=== PATIENT | female | born 1945 | race Caucasian/White ===

== ENCOUNTER 2017-07-31 10:59 | Emergency (ER) | payer OTHER ==
[2017-07-31 11:07] VITALS: RESP 18; TEMP 97.9
--- NOTE | 2017-07-31 11:15 | EDPHY ---
H & P Stated Complaint: L ear stopped up after swimming with earplugs Time Seen by Provider: 07/31/17 11:15 - Personal History Current Tetanus Diphtheria and Acellular Pertussis (TDAP): No - Medical/Surgical History Other PMH: healthy - Social History Smoking Status: Former smoker Constitutional: Initial Vital Signs Temperature (C) 36.6 C 07/31/17 11:00 Heart Rate 78 07/31/17 11:00 Respiratory Rate 18 07/31/17 11:00 Blood Pressure 163/82 H 07/31/17 11:00 O2 Sat (%) 96 07/31/17 11:00 O2 Delivery Mode Room Air Allergies/Adverse Reactions: No Known Allergies Allergy (Unverified 07/31/17 11:07) Home Medications: Medication Instructions Recorded NK [No Known Home Meds] 07/31/17 Medical Decision Making ED Course/Re-evaluation: CHIEF COMPLAINT: Can't hear out of left ear and right ear somewhat decreased HISTORY OF PRESENT ILLNESS: 71-year-old female who claims she is quite healthy. She has been swimming quite a bit and using ear plugs. She feels like she might have put something into her year because she can here at all of the left ear and her hearing on the right is decreased. She denies any fevers chills. She denies any ear pain. She denies any jaw pain. She denies any TMJ pain. She has had cerumen impaction in the past and feels the same to her. REVIEW OF SYSTEMS: A 10 point review of systems was performed and is negative with the exception of the elements mentioned in the history of present illness. PHYSICAL EXAM: HR, BP, O2 Sat, RR. Temp noted General Appearance: Alert, well hydrated, appropriate, and non-toxic appearing. Head: Atraumatic without scalp tenderness or obvious injury Eyes: Pupils equal, round, reactive to light and accommodation, EOMI, no trauma , no injection. Ears: Impacted cerumen bilaterally. After irrigation: Clear bilaterally, no perforation, normal landmarks Nose: Atraumatic, no rhinorrhea, clear. Throat: There is no erythema or exudates, no lesions, normal tonsils, mucus membranes moist. Neck: Supple, 2+ carotid upstroke, nontender, no lymphadenopathy. Respiratory: No retractions, no distress, no wheezes, and no accessory muscle use. Lungs are clear to auscultation bilaterally. Cardiovascular: Regular rate and rhythm, no murmurs, rubs, or gallops. Bilateral carotid, radial, dorsalis pedis, and posterior tibial pulses intact. Good capillary refill all extremities. Gastrointestinal: Abdomen is soft, nontender, non-distended, no masses, no rebound, no guarding, no peritoneal signs. Musculoskeletal: Normal active ROM of all extremities, atraumatic. Neurological: Alert, appropriate, and interactive. The patient has normal DTRs and non-focal cranial nerves, motor, sensory, and cerebellar exam. Skin: No rashes, good turgor, no nodules on palpation. Past medical history: Prior cerumen impactions Past surgical history: None Family history: Noncontributory Social history: , does not abuse tobacco drugs or alcohol DIFFERENTIAL DIAGNOSIS: Hearing loss includes but is not limited to: Cerumen impaction, tympanic membrane disruption, ossicle disruption, otitis externa, swimmer's ear MEDICAL DECISION MAKING: This patient has no evidence of infection but has bilateral cerumen impaction. We have irrigated both ears. The tympanic membranes look normal after irrigation. She will use some Cerumenex to help decrease her cerumen buildup. Patient can't hear very well now. Departure - Departure Disposition: Home, Routine, Self-Care Clinical Impression: Cerumen impaction Qualifiers: Laterality: bilateral Qualified Code(s): H61.23 - Impacted cerumen, bilateral Condition: Good Instructions: Cerumen Impaction (ED) Additional Instructions: By Cerumenex [id number] Referrals: NONE *PRIMARY CARE P,. [Primary Care Provider] - As per Instructions
[2017-07-31 11:51] VITALS: BP 169/83; PULSE 75; O2SAT 95
== END 2017-07-31 11:46 | disposition home or self-care (01) ==
PROC: 3E1B78Z Irrigation of Ear using Irrigating Substance, Via Natural or Artificial Opening (ICD-10-PCS; principal; 2017-07-31)
DX: H61.23 Impacted cerumen, bilateral (principal); Z87.891 Personal history of nicotine dependence

== ENCOUNTER 2017-09-02 11:54 | Emergency (ER) | payer OTHER ==
[2017-09-02 12:19] VITALS: TEMP 98.4
--- NOTE | 2017-09-02 13:40 | EDPHY ---
H & P Stated Complaint: Flu like sx, body aches Time Seen by Provider: 09/02/17 13:39 HPI/ROS: CHIEF COMPLAINT: Flu-like symptoms HISTORY OF PRESENT ILLNESS: The patient presents to the ED with influenza like symptoms for the past 2 days. She reports myalgias, low-grade fever a mild dry nonproductive cough and low-grade nausea. She has had no vomiting or diarrhea. The patient does significant headache, neck pain, numbness or weakness. The patient denies dysuria. The patient did not receive a flu shot this year. She denies any significant past medical history. She takes no regular medications. REVIEW OF SYSTEMS: A comprehensive 10 point review of systems is otherwise negative aside from elements mentioned in the history of present illness. Source: Patient - Personal History Current Tetanus/Diphtheria Vaccine: No Current Tetanus Diphtheria and Acellular Pertussis (TDAP): No - Medical/Surgical History Hx Asthma: No Hx Chronic Respiratory Disease: No Hx Diabetes: No Hx Cardiac Disease: No Hx Renal Disease: No Hx Cirrhosis: No Hx Alcoholism: No Hx HIV/AIDS: No Hx Splenectomy or Spleen Trauma: No Other PMH: healthy - Social History Smoking Status: Former smoker - Physical Exam Exam: General Appearance: Alert, no distress Eyes: Pupils equal and round no pallor or injection ENT, Mouth: Mucous membranes moist Respiratory: There are no retractions, lungs are clear to auscultation Cardiovascular: Regular rate and rhythm Gastrointestinal: Abdomen is soft and nontender, no masses, bowel sounds normal Neurological: A&O, normal motor function, normal sensory exam, normal cranial nerves Skin: Warm and dry, no rashes Musculoskeletal: Neck is supple nontender Extremities: symmetrical, full range of motion Constitutional: Initial Vital Signs Temperature (C) 36.9 C 09/02/17 12:17 Heart Rate 68 09/02/17 12:17 Respiratory Rate 18 09/02/17 12:17 Blood Pressure 142/83 H 09/02/17 12:17 O2 Sat (%) 94 09/02/17 12:17 O2 Delivery Mode Room Air Allergies/Adverse Reactions: Penicillins Allergy (Verified 09/02/17 12:19) Home Medications: Medication Instructions Recorded Oseltamivir Phosphate [Tamiflu] 75 mg PO BID #10 cap 09/02/17 Medical Decision Making ED Course/Re-evaluation: The patient presents to the ED with a influenza like illness. She is within 48 hr of the onset of symptoms. She is well-appearing otherwise without clinical evidence of meningitis or pneumonia. The patient will be treated empirically with Tamiflu. She is advised to return to the ED for any progressive symptoms including headache, neck pain, numbness, weakness, pain or other concerns. Departure - Departure Disposition: Home, Routine, Self-Care Clinical Impression: Influenza Condition: Good Instructions: Influenza (ED) Additional Instructions: 1. Please take Tamiflu as directed for influenza. 2. Take Ibuprofen or Motrin 600 mg by mouth three times a day. 3. Return to the ED for increasing symptoms of chest pain, difficulty breathing , vomiting or other concerns.
[2017-09-02 14:02] VITALS: BP 142/89; PULSE 76; RESP 16; O2SAT 93
== END 2017-09-02 14:00 | disposition home or self-care (01) ==
DX: J11.1 Influenza due to unidentified influenza virus with other respiratory manifestations (principal); Z87.891 Personal history of nicotine dependence